=== PATIENT | male | born 1940 | race Caucasian/White ===

== ENCOUNTER 2020-06-17 10:57 | Observation (INO) | payer MEDICARE, OTHER ==
[~2020-06-17] VITALS: Ht 177.8 cm; Wt 72.4 kg
[~2020-06-17 10:57] MED LIST: ATOR10TA87 PO; CLOP75TA35 PO; FLUO20CA39 PO; LISI2.5T2 PO; METO25TA6 PO; PANT-47 PO
[2020-06-17 11:31] LABS: BASOPHILS # (AUTO) 0.1 X10'3 (0-0.2); BASOPHILS % (AUTO) 1.4 % (0-1); EOSINOPHILS # (AUTO) 0.1 X10'3 (0-0.9); EOSINOPHILS % (AUTO) 1.7 % (0-6); HEMATOCRIT 41.5 % (42.0-52.0); HEMOGLOBIN 13.6 g/dl (14.0-17.9); LYMPHOCYTES # (AUTO) 0.8 X10'3 (1.1-4.8); MEAN CORPUSCULAR HEMOGLOBIN 28.3 PG (27.0-31.0); MEAN CORPUSCULAR HGB CONC 32.8 g/dL (33.0-36.5); MEAN CORPUSCULAR VOLUME 86.1 FL (78-98); MEAN PLATELET VOLUME 8.1 FL (7.4-10.4); MONOCYTES # (AUTO) 0.5 X10'3 (0-0.9); MONOCYTES % (AUTO) 9.8 % (2-12); NEUTROPHILS # (AUTO) 3.4 X10'3 (1.8-7.7); NEUTROPHILS % (AUTO) 70.1 % (42-75); PLATELET COUNT 183 X10'3 (140-440); RED BLOOD COUNT 4.82 X10'6 (4.70-6.10); RED CELL DISTRIBUTION WIDTH 14.5 % (11.5-14.5); WHITE BLOOD COUNT 4.8 X10'3 (4.5-11.0)
[2020-06-17] MEDS ORDERED: aspirin 325mg tablet PO ONE (11:40)
[2020-06-17 11:46] LABS: ALANINE AMINOTRANSFERASE 17 U/L (12-78); ALBUMIN 3.3 G/DL (3.4-5.0); ALKALINE PHOSPHATASE 66 IU/L (46-116); ANION GAP 5 (8-16); ASPARTATE AMINO TRANSFERASE 14 U/L (10-37); BILIRUBIN,TOTAL 0.4 MG/DL (0.1-1.0); BLOOD UREA NITROGEN 21 MG/DL (7-18); BUN/CREATININE RATIO 17.6 (5.4-32.0); CALCIUM 9.2 MG/DL (8.5-10.1); CHLORIDE 108 MMOL/L (99-107); CREATININE 1.19 MG/DL (0.60-1.10); GLUCOSE 100 MG/DL (70-104); POTASSIUM 4.4 MMOL/L (3.5-5.1); SODIUM 142 MMOL/L (135-145); TOTAL CARBON DIOXIDE 29.1 MMOL/L (24-32); TOTAL PROTEIN 6.7 G/DL (6.4-8.2); eGFR 59 ML/MIN
[2020-06-17] MEDS ORDERED: ESOM40CA49 PO (13:12)
[2020-06-17] MEDS ORDERED: ATOR10TA70 PO (13:13)
[2020-06-17] MEDS ORDERED: CLOP75TA33 PO (13:13)
[2020-06-17] MEDS ORDERED: magnesium 4gm in 100ml NS 100 ML IV PRN (13:45)
[2020-06-17] MEDS ORDERED: ondansetron/PF 4mg/2ml inj IV PRN (13:45)
[2020-06-17] MEDS ORDERED: magnesium 2GM in 50ml NS 50 ML IV PRN (13:45)
[2020-06-17] MEDS ORDERED: acetaminophen 325mg tablet PO PRN (13:45)
[2020-06-17] MEDS ORDERED: potassium CL 10mEq/100ml bag 100 ML IV PRN ×2 (13:45)
[2020-06-17] MEDS ORDERED: potassium Cl 20 mEq SR tablet PO PRN ×2 (13:45)
[2020-06-17] MEDS ORDERED: magnesium Cl slow-release 64mg tablet PO PRN (13:45)
--- NOTE | 2020-06-17 14:59 | NUR ---
Patient in room ED 3. I have received report from Andrew SHAVER and had the opportunity to ask questions and assume patient care.
[2020-06-17 15:00] VITALS: BP 147/72
--- NOTE | 2020-06-17 16:00 | NUR ---
Patient arrived to the unit accompanied by ER personnel. Patient safely ambulated to bed from [facility], vital signs obtained, 2 RN skin check complete, belongings placed at the bedside, patient oriented to room and call light. Will continue to monitor.
--- NOTE | 2020-06-17 18:12 | NUR ---
Problems reprioritized. Patient report given, questions answered & plan of care reviewed with Chelsea SHAVER.
[2020-06-17 19:00] VITALS: BP 163/74
[2020-06-17] MEDS: K and/or MAG REPLACEMENT MC SCH (20:00)
[2020-06-17] MEDS ORDERED: aminophylline 250mg/10ml inj. IV PRN (21:15)
[2020-06-17] MEDS ORDERED: regadenoson 0.4mg/5ml syringe IV ONE (21:15)
[2020-06-17] MEDS ORDERED: metoprolol tartrate 1mg/ml inj IV PRN (21:15)
[2020-06-17] MEDS ORDERED: nitroGLYCERIN 0.4mg SUBLingual tab SL PRN (21:15)
[2020-06-17 23:00] VITALS: BP 167/79
[2020-06-18] VITALS (10 sets, daily range): BP systolic 114–159; BP diastolic 48–75
[2020-06-18 05:20] LABS: BASOPHILS % (AUTO) 0.7 % (0-1); EOSINOPHILS # (AUTO) 0.1 X10'3 (0-0.9); HEMOGLOBIN 12.9 g/dl (14.0-17.9); LYMPHOCYTES % (AUTO) 24.7 % (21-51); MEAN CORPUSCULAR HEMOGLOBIN 27.8 PG (27.0-31.0); MEAN CORPUSCULAR VOLUME 84.4 FL (78-98); MONOCYTES # (AUTO) 0.5 X10'3 (0-0.9); MONOCYTES % (AUTO) 11.3 % (2-12); NEUTROPHILS # (AUTO) 2.5 X10'3 (1.8-7.7); NEUTROPHILS % (AUTO) 61.3 % (42-75); PLATELET COUNT 168 X10'3 (140-440); RED BLOOD COUNT 4.62 X10'6 (4.70-6.10); RED CELL DISTRIBUTION WIDTH 14.2 % (11.5-14.5)
[2020-06-18 05:33] LABS: ALBUMIN 2.9 G/DL (3.4-5.0); ANION GAP 5 (8-16); BLOOD UREA NITROGEN 19 MG/DL (7-18); BUN/CREATININE RATIO 20.4 (5.4-32.0); CALCIUM 8.5 MG/DL (8.5-10.1); CHLORIDE 108 MMOL/L (99-107); CREATININE 0.93 MG/DL (0.60-1.10); GLUCOSE 88 MG/DL (70-104); MAGNESIUM 1.9 MG/DL (1.5-2.4); POTASSIUM 4.1 MMOL/L (3.5-5.1); SODIUM 142 MMOL/L (135-145); TOTAL CARBON DIOXIDE 28.9 MMOL/L (24-32); eGFR 78 ML/MIN
--- NOTE | 2020-06-18 06:59 | NUR ---
Patient in room PCU 3017. I have received report from SIVAKUMAR Tran and had the opportunity to ask questions and assume patient care. Patient awake in bed and in no acute distress.
[2020-06-18] MEDS: K and/or MAG REPLACEMENT MC SCH (08:00)
--- NOTE | 2020-06-18 08:26 | NUR ---
Patient going down to nuclear medicine at this time.
--- NOTE | 2020-06-18 10:30 | NUR ---
Patient back from nuclear medicine.
--- NOTE | 2020-06-18 12:58 | NUR ---
Paged Dr. Banks regarding patient's lexiscan results. PAGER ID: [phone] MESSAGE: [phone]. Bogdan Teran. Patient's lexiscan has resulted. Thank you. Sara SHAVER x [phone]
--- NOTE | 2020-06-18 14:00 | NUR ---
Patient stable for discharge per MD orders. All discharge instructions reviewed and all questions answered appropriately. Patient's belongings collected and sent with patient. Patient will call and schedule his follow up appointment with his PCP. No new prescriptions prescribed. PIV discontinued and cannula intact. vehicle monitor technician discontinued. Patient wanted to ambulate down to the lobby and wanted to wait by himself outside for his to come and pick him up.
[2020-06-18] MEDS ORDERED: NITR0.4T51 SL (17:35)
--- NOTE | 2020-06-19 15:17 | NUR ---
Case Management DC follow up: LM/VM re post DC status r/t cp. rtn call questions, concerns
== END 2020-06-18 14:01 | disposition home or self-care (01) ==
LOC: ER 10:58 → ED HOLD 13:45 → PCU 3S 15:10
PROVIDERS: ADMIT Internal Medicine; ATTEND Internal Medicine
DX: R07.89 Other chest pain (principal); I25.110 Atherosclerotic heart disease of native coronary artery with unstable angina pectoris; K21.9 Gastro-esophageal reflux disease without esophagitis; E78.5 Hyperlipidemia, unspecified; I10 Essential (primary) hypertension; I25.2 Old myocardial infarction; I21.3 ST elevation (STEMI) myocardial infarction of unspecified site; Z95.1 Presence of aortocoronary bypass graft; Z95.5 Presence of coronary angioplasty implant and graft; Z79.02 Long term (current) use of antithrombotics/antiplatelets; Z79.899 Other long term (current) drug therapy
CPT/HCPCS: 36415; 71045; 78452; 80048; 80053; 83735; 83880; 84484; 85025; 93005; 93017; 93306; 99285; A9500; G0378; J2785

== ENCOUNTER 2020-07-16 07:01 | Day surgery (SDC) | payer MEDICARE, OTHER ==
[2020-07-15 13:54] LABS: BASOPHILS % (AUTO) 0.7 % (0-1); EOSINOPHILS % (AUTO) 1.1 % (0-6); HEMATOCRIT 40.3 % (42.0-52.0); HEMOGLOBIN 13.1 g/dl (14.0-17.9); LYMPHOCYTES # (AUTO) 0.9 X10'3 (1.1-4.8); MEAN CORPUSCULAR HEMOGLOBIN 27.8 PG (27.0-31.0); MEAN CORPUSCULAR HGB CONC 32.6 g/dL (33.0-36.5); MEAN CORPUSCULAR VOLUME 85.1 FL (78-98); MEAN PLATELET VOLUME 7.9 FL (7.4-10.4); MONOCYTES # (AUTO) 0.4 X10'3 (0-0.9); MONOCYTES % (AUTO) 9.5 % (2-12); NEUTROPHILS # (AUTO) 2.6 X10'3 (1.8-7.7); NEUTROPHILS % (AUTO) 66.7 % (42-75); PLATELET COUNT 178 X10'3 (140-440); RED BLOOD COUNT 4.74 X10'6 (4.70-6.10); RED CELL DISTRIBUTION WIDTH 14.8 % (11.5-14.5); WHITE BLOOD COUNT 3.9 X10'3 (4.5-11.0)
[2020-07-15 14:03] LABS: ALBUMIN 3.2 G/DL (3.4-5.0); ANION GAP 5 (8-16); BLOOD UREA NITROGEN 15 MG/DL (7-18); BUN/CREATININE RATIO 13.2 (5.4-32.0); CHLORIDE 106 MMOL/L (99-107); CREATININE 1.14 MG/DL (0.60-1.10); GLUCOSE 115 MG/DL (70-104); POTASSIUM 4.2 MMOL/L (3.5-5.1); SODIUM 140 MMOL/L (135-145); TOTAL CARBON DIOXIDE 28.8 MMOL/L (24-32); eGFR 62 ML/MIN
[2020-07-15 14:06] LABS: PARTIAL THROMBOPLASTIN TIME 31 SECONDS (22-32)
[~2020-07-16] VITALS: Ht 177.8 cm; Wt 75.9 kg
[2020-07-16] VITALS (10 sets, daily range): BP systolic 126–167; BP diastolic 64–82
[~2020-07-16 07:01] MED LIST changes: +ATOR10TA70 PO; -ATOR10TA87 PO; +CLOP75TA33 PO; -CLOP75TA35 PO; +ESOM40CA49 PO; -FLUO20CA39 PO; -LISI2.5T2 PO; -METO25TA6 PO; +NITR0.4T51 SL; -PANT-47 PO
[2020-07-16] MEDS ORDERED: CHOL100025 PO (07:42)
[2020-07-16] MEDS ORDERED: OMEG-79 PO (07:42)
[2020-07-16] MEDS ORDERED: TURM1POW (07:42)
[2020-07-16] MEDS ORDERED: MULT-1142 PEG (07:42)
[2020-07-16] MEDS ORDERED: LIDOcaine/PRILOcaine 5gm cream TP ONE (07:50)
[2020-07-16] MEDS ORDERED: sodium bicarbonate (8.4%) inj. 150 ML in dextrose 5%-water 1,000 ML IV ONE (07:50)
[2020-07-16] MEDS ORDERED: diphenhydrAMINE 25mg capsule PO PRN (07:50)
[2020-07-16] MEDS ORDERED: LORazepam 0.5 MG tablet PO PRN (07:50)
[2020-07-16] MEDS ORDERED: acetylcysteine 200 MG/ml 4ml vial PO PRN (07:55)
[2020-07-16] MEDS ORDERED: verapamil 2.5 mg/ml inj IV ONE (11:29)
[2020-07-16] MEDS ORDERED: midazolam 2 mg/2 ml injection ONE (11:29)
[2020-07-16] MEDS ORDERED: iohexol 350MG/ML 100ml bottle IV ONE ×2 (11:30→12:30)
[2020-07-16] MEDS ORDERED: heparin 1,000unit/ml 10ml vial 10 ML ONE (11:30)
[2020-07-16] MEDS ORDERED: nitroGLYCERIN-Tridil 50MG/D5W 250 ML IV ONE (11:30)
[2020-07-16] MEDS ORDERED: iohexol 350 MG/ML 50ML vial IV ONE (11:30)
[2020-07-16] MEDS ORDERED: fentaNYL/PF 50MCG/1 ML 2ML syringe ONE (11:30)
[2020-07-16] MEDS ORDERED: LIDOcaine 1% (10mg/ml)w/preservative injection 20ml MDV ONE (11:30)
[2020-07-16] MEDS ORDERED: heparin 25,000 UNIT/250ml bag 250 ML IV ONE (12:30)
[2020-07-16 12:31] LABS: ISTAT HGB ART 12.2 g/dl (14.0-18.0); ISTAT Hct ART 36 %PCV (42-52); ISTAT O2 SATURATION ARTERIAL 92 % (95-98); ISTAT SOURCE ART
[2020-07-16] MEDS ORDERED: clopidogrel 300mg tablet ONE (13:38)
[2020-07-16] MEDS ORDERED: heparin 25,000 UNIT/250ml bag 250 ML IV SCH (14:15)
[2020-07-16] MEDS ORDERED: cyclobenzaprine 10mg tablet PO PRN (14:20)
[2020-07-16] MEDS ORDERED: proCHLORperazine 10 MG/2 ml inj IV PRN (14:20)
[2020-07-16] MEDS ORDERED: HYDROcodone/acetaminophen 10/325mg tab PO PRN ×2 (14:20)
[2020-07-16] MEDS ORDERED: acetaminophen 325mg tablet PO PRN ×2 (14:20)
[2020-07-16] MEDS ORDERED: magnesium hydroxide 30ml (MOM) UD suspension PO PRN (14:20)
[2020-07-16] MEDS ORDERED: OXAZEpam 15mg capsule PO PRN (14:20)
[2020-07-16] MEDS ORDERED: docusate sod 100mg capsule PO SCH (20:00)
[2020-07-17] MEDS ORDERED: clopidogrel 75mg tablet PO SCH (08:00)
== END 2020-07-16 19:10 | disposition home or self-care (01) ==
LOC: SSTAY O 07:01
PROVIDERS: ATTEND Internal Medicine Cardiovascular Disease
DX: R06.02 Shortness of breath (principal); R53.83 Other fatigue; T82.855A Stenosis of coronary artery stent, initial encounter; I25.10 Atherosclerotic heart disease of native coronary artery without angina pectoris; I10 Essential (primary) hypertension; E78.5 Hyperlipidemia, unspecified; K21.9 Gastro-esophageal reflux disease without esophagitis; I25.2 Old myocardial infarction; Z95.5 Presence of coronary angioplasty implant and graft; Z79.899 Other long term (current) drug therapy; Z79.01 Long term (current) use of anticoagulants; Z87.891 Personal history of nicotine dependence; Z82.49 Family history of ischemic heart disease and other diseases of the circulatory system; Y83.8 Other surgical procedures as the cause of abnormal reaction of the patient, or of later complication, without mention of misadventure at the time of the procedure; Y92.89 Other specified places as the place of occurrence of the external cause
CPT/HCPCS: 36415; 80048; 82803; 85014; 85025; 85347; 85610; 85730; 92978; 93005; 93460; 99152; 99153; C1725; C1751; C1769; C1874; C1894; C9600; J1644; J2001; J2250; J3010; Q0163; Q9967; A4620; J3490